=== PATIENT | female | born 1985 | race Caucasian/White ===

== ENCOUNTER 2019-10-16 18:23 | Emergency (ER) | payer OTHER, SELFPAY ==
[2019-10-16] MEDS ORDERED: Acetaminophen 500 MG TAB ONE (19:21)
[2019-10-16] MEDS ORDERED: Ondansetron ODT 4 MG TAB ONE (19:21)
[2019-10-17 19:48] LABS: SARS-CoV-2 MS2 Positive; SARS-CoV-2 N Gene Positive; SARS-CoV-2 S Gene Positive; SARS-CoV-2 orf1ab Positive
== END 2019-10-16 19:36 | disposition home or self-care (01) ==
LOC: NAV ERS 18:23
DX: U07.1 COVID-19 (principal); F41.9 Anxiety disorder, unspecified
CPT/HCPCS: 87635; 99283; Q0162; U0003

== ENCOUNTER 2020-03-11 22:49 | Emergency (ER) | payer MEDICAID, SELFPAY ==
[2020-03-11 23:41] LABS: #Basophils 0.1 thou/uL (0.0-0.2); #Lymphocytes 2.2 thou/uL (1.20-3.40); #Monocytes 0.3 thou/uL (0.11-0.59); #Neutrophils 3.7 thou/uL (1.40-6.50); %Eosinophils 0.6 % (0.0-10.0); %Lymphocytes 34.6 % (21.0-51.0); %Monocytes 5.1 % (0.0-10.0); %Neutrophils 58.8 % (42.0-75.0); Hemoglobin 11.5 g/dL (12.0-16.0); Mean Corpuscular HGB CONC 32.6 g/dL (32.0-36.0); Mean Corpuscular Hemoglobin 25.9 pg (27.0-31.0); Mean Corpuscular Volume 79.2 fL (78.0-98.0); Mean Platelet Volume 7.1 fL (7.4-10.4); Platelet Count 317 thou/uL (130-400); RBC Distribution Width 15.2 % (11.5-14.5); Red Blood Cell (RBC) Count 4.43 mill/uL (4.20-5.40); White Blood Cell (WBC) Count 6.3 thou/uL (4.8-10.8)
[2020-03-11 23:42] LABS: Bilirubin Negative (Negative); Blood, Urine Trace (Negative); Clarity Clear (Clear); Glucose, Urine (Dipstick) Negative (Negative); Ketone, Urine Negative (Negative); Leukocyte Small (Negative); Nitrite Negative (Negative); Protein, Urine (Dipstick) Negative (Neg-Trace); Urobilinogen 0.2 mg/dL (Less than 2)
[2020-03-11 23:51] LABS: Amphetamine Not Detected (NotDetected); Barbiturates Screen Not Detected (NotDetected); Benzodiazepine Screen Not Detected (NotDetected); Cocaine Metabolite Screen Not Detected (NotDetected); Medtox Control Line Valid? VALID (VALID); Methadone Not Detected (NotDetected); Methamphetamine Not Detected (NotDetected); Opiate Screen Not Detected (NotDetected); Oxycodone Screen Not Detected (NotDetected); Phencyclidine (PCP) Not Detected (NotDetected); THC/Cannabinoid Screen Not Detected (NotDetected); Tricyclic Screen Not Detected (NotDetected)
[2020-03-11 23:51] LABS: BHCG - Serum Negative (NEGATIVE); Pregs Control Bar Appear? YES (CONTROL BAR)
[2020-03-11 23:54] LABS: Acetaminophen Less than 6.0 mcg/mL (10.0-30.0); Alcohol Less than 10 mg/dL (Less than 10); Salicylate Less than 8.0 mg/dL (15.0-30.0)
[2020-03-11 23:55] LABS: ALT (SGPT) Less than 6 U/L (8-55); AST (SGOT) 12 U/L (5-34); Albumin 4.1 g/dL (3.5-5.0); Alkaline Phosphatase 101 U/L (40-110); Anion Gap 17 mmol/L (10-20); BUN (Urea Nitrogen) 8 mg/dL (7.0-18.7); Bilirubin, Total 0.2 mg/dL (0.2-1.2); Carbon Dioxide 19 mmol/L (22-29); Chloride 109 mmol/L (98-107); Globulin 4.3 g/dL (2.4-3.5); Glucose 101 mg/dL (70-105); Potassium 4.6 mmol/L (3.5-5.1); Protein, Total 8.4 g/dL (6.0-8.3); Sodium 140 mmol/L (136-145)
[2020-03-11 23:58] LABS: Bacteria/HPF 1+ HPF (None Seen); RBC/HPF 0-3 HPF (0-3); WBC/HPF 0-3 HPF (0-3)
[2020-03-11 23:59] LABS: Calc. Creatinine Clearance 0 mL/min (70-130)
[2020-03-12] MEDS ORDERED: Acetaminophen 500 MG TAB ONE (11:36)
[2020-03-12 13:24] LABS: SARS-CoV-2 NAA Rapid Test Not Detected (NotDetected)
== END 2020-03-12 17:58 ==
LOC: NAV ERS 22:49
DX: F32.9 Major depressive disorder, single episode, unspecified (principal); Z79.899 Other long term (current) drug therapy
CPT/HCPCS: 0240U; 80053; 80306; 80307; 81003; 81015; 84443; 84703; 85025; 99285

== ENCOUNTER 2021-04-12 22:00 | Emergency (ER) | payer OTHER, SELFPAY ==
[2021-04-12] MEDS ORDERED: Sodium Chloride 0.9% 1,000 ML ONE (22:59)
[2021-04-12] MEDS ORDERED: Ondansetron PF 4 MG/2 ML Vial ONE (22:59)
[2021-04-12] MEDS ORDERED: Loperamide HCl 2 MG CAP ONE (22:59)
[2021-04-13 15:16] LABS: SARS-CoV-2 PCR by NAA Not Detected (NotDetected)
== END 2021-04-13 00:40 | disposition home or self-care (01) ==
LOC: NAV ERS 22:00
DX: K52.9 Noninfective gastroenteritis and colitis, unspecified (principal); Z20.822 Contact with and (suspected) exposure to COVID-19
CPT/HCPCS: 96374; J2405; J7050; U0003; U0005

== ENCOUNTER 2022-01-22 18:54 | Emergency (ER) | payer SELFPAY ==
[2022-01-22] MEDS ORDERED: Ondansetron ODT 4 MG TAB ONE (19:18)
[2022-01-22] MEDS ORDERED: traMADol HCl 50 MG TAB ONE (19:18)
[2022-01-22] MEDS ORDERED: Cephalexin 250 MG CAP ONE (19:18)
== END 2022-01-22 19:26 | disposition home or self-care (01) ==
LOC: NAV ERS 18:54
DX: K04.7 Periapical abscess without sinus (principal)
CPT/HCPCS: 99282; Q0162